=== PATIENT | female | born 2000 | race African-American/Black ===

== ENCOUNTER 2024-10-20 16:15 | Emergency (ER) | payer MEDICAID ==
[~2024-10-20] VITALS: Ht 157.5 cm; Wt 52.1 kg
[2024-10-20 16:38] VITALS: BP 123/86; PULSE 88; RESP 16; TEMP 98.5; O2SAT 100
[2024-10-20 18:23] LABS: BASOPHILS % 0.8 % (0.0-2.0); EOSINOPHILS % 0.3 % (0.0-5.0); HEMATOCRIT. 43.8 % (36.0-48.0); HEMOGLOBIN. 14.5 g/dL (12.0-16.0); LYMPHOCYTES % 17.5 % (20.0-50.0); MEAN CORPUSCULAR HEMOGLOBIN 32.1 pg (28.0-32.0); MEAN CORPUSCULAR HGB CONC 33.2 g/dL (31.0-37.0); MEAN CORPUSCULAR VOLUME 96.7 fL (81.0-99.0); MEAN PLATELET VOLUME 8.2 fl (7.4-10.4); MONOCYTES % 8.3 % (2.0-8.0); NEUTROPHILS % 73.1 % (40.0-76.0); PLATELET 441 x1000/uL (130-400); RED BLOOD CELL COUNT 4.53 mill/uL (4.2-5.4); RED CELL DISTRIBUTION WIDTH 16.2 % (11.6-14.6)
[2024-10-20 18:29] LABS: CARBON DIOXIDE 25 mEq/L (21-32); CHLORIDE 99 mEq/L (98-107); POTASSIUM 3.7 mEq/L (3.5-5.1); SODIUM 137 mEq/L (136-145)
[2024-10-20 18:30] LABS: CALCIUM 10.1 mg/dL (8.7-10.4)
[2024-10-20 18:34] LABS: CREATININE 0.9 mg/dL (0.6-1.0)
[2024-10-20 18:35] LABS: ETHANOL BLOOD < 10 mg/dL (<10); GLUCOSE 91 mg/dL (70-105); UREA NITROGEN BLOOD 5 mg/dL (9-23)
[2024-10-20 18:36] LABS: ALANINE AMINOTRANSFERASE 40 IU/L (10-49); ALBUMIN 4.7 g/dL (3.2-4.8); ASPARTATE AMINOTRANSFERASE 79 IU/L (<34)
[2024-10-20 18:37] LABS: BILIRUBIN DIRECT 0.4 mg/dL (<=3.0); BILIRUBIN TOTAL 1.3 mg/dL (0.1-1.0); PHOSPHORUS 3.4 mg/dL (2.5-4.9); PROTEIN TOTAL 8.1 g/dL (6.0-8.3)
[2024-10-20] MEDS ORDERED: ONDA-239 PO (18:57)
[2024-10-20] MEDS: ONDANSETRON 4MG ODT PO ONE (19:41)
[2024-10-20] MEDS: FAMOTIDINE 20MG TABLET PO ONE (19:41)
[2024-10-20] MEDS: MAGNESIUM/ALUMINUM HYDROXIDE/SIMETHICONE 30ML UDC PO ONE (19:41)
[2024-10-20] MEDS: CHLORDIAZEPOXIDE 25MG CAPSULE PO ONE (19:41)
[2024-10-20 20:10] LABS: CLARITY URINE CLEAR (CLEAR); COLOR URINE ORANGE (YELLOW); GLUCOSE URINE NEGATIVE (NEGATIVE); KETONES URINE 3+ (NEGATIVE); LEUKOCYTE ESTERASE URINE TRACE (NEGATIVE); NITRITE URINE NEGATIVE (NEGATIVE); OCCULT BLOOD URINE NEGATIVE (NEGATIVE); PROTEIN URINE 1+ (NEGATIVE); SPECIFIC GRAVITY URINE 1.029 (1.005-1.030)
[2024-10-20 20:45] LABS: BACTERIA URINE TRACE; RBC URINE NONE SEEN /hpf (0-2); SQUAMOUS EPITHELIAL CELL URINE FEW /lpf (RARE/1+); WBC URINE 0-2 /hpf (0-2)
[2024-10-20 20:46] LABS: MUCUS URINE 1+ /lpf (< = 2+)
== END 2024-10-20 19:43 | disposition home or self-care (01) ==
LOC: ER 16:15
DX: F10.239 Alcohol dependence with withdrawal, unspecified (principal); J45.909 Unspecified asthma, uncomplicated; Z88.0 Allergy status to penicillin; Z98.890 Other specified postprocedural states; Y90.0 Blood alcohol level of less than 20 mg/100 ml
CPT/HCPCS: 80076; 80048; 81003; 80320; 83690; 83735; 84100; 85025; 36415; 99284; Q0162; G0480